=== PATIENT | female | born 1950 | race African-American/Black ===

== ENCOUNTER 2019-08-08 19:05 | Emergency (ER) | payer OTHER ==
[~2019-08-08] VITALS: Ht 154.9 cm; Wt 117.9 kg
[~2019-08-08 19:05] MED LIST: FLEXERIL PO; LORTAB 5 MG/5001 TA1 PO; METFORMIN 500500 MG PO
[2019-08-08 19:07] VITALS: BP 159/80
[2019-08-08] MEDS ORDERED: NORVASC2.5 MG PO (19:10)
[2019-08-08] MEDS ORDERED: GLUMETZA500 PO (19:11)
[2019-08-08] MEDS ORDERED: HYDROCHLOROTHIA25 M1 (19:11)
[2019-08-08] MEDS ORDERED: MOBIC7.5 MG PO (19:55)
== END 2019-08-08 20:15 | disposition home or self-care (01) ==
LOC: ER 19:05
DX: M25.472 Effusion, left ankle (principal); I10 Essential (primary) hypertension; E11.9 Type 2 diabetes mellitus without complications; Z90.711 Acquired absence of uterus with remaining cervical stump

== ENCOUNTER 2020-06-30 09:31 | Emergency (ER) | payer BC, OTHER ==
[~2020-06-30] VITALS: Ht 154.9 cm; Wt 113.4 kg
[~2020-06-30 09:31] MED LIST changes: +GLUMETZA500 PO; +HYDROCHLOROTHIA25 M1; +MOBIC7.5 MG PO; +NORVASC2.5 MG PO
[2020-06-30 09:32] VITALS: BP 140/59
[2020-06-30] MEDS ORDERED: MELOXICAM7.5 MG PO (10:07)
== END 2020-06-30 10:40 | disposition home or self-care (01) ==
LOC: ER 09:31
DX: G56.01 Carpal tunnel syndrome, right upper limb (principal); E11.9 Type 2 diabetes mellitus without complications; Z98.51 Tubal ligation status; Z79.899 Other long term (current) drug therapy

== ENCOUNTER → 2020-10-16 | Outpatient (CLI) | payer BC, OTHER ==
[~2020-10-16] MED LIST changes: +MELOXICAM7.5 MG PO
== END ==
LOC: LAB 08:45
PROVIDERS: ATTEND Family Medicine
DX: Z20.828 Contact with and (suspected) exposure to other viral communicable diseases (principal)

== ENCOUNTER 2021-07-26 09:07 | Emergency (ER) | payer BC, OTHER ==
[~2021-07-26] VITALS: Ht 154.9 cm; Wt 117.9 kg
[2021-07-26 09:07] VITALS: BP 152/62
== END 2021-07-26 11:29 | disposition home or self-care (01) ==
LOC: ER 09:07
DX: M65.872 Other synovitis and tenosynovitis, left ankle and foot (principal); M25.572 Pain in left ankle and joints of left foot; E11.9 Type 2 diabetes mellitus without complications; Z90.711 Acquired absence of uterus with remaining cervical stump; Z79.1 Long term (current) use of non-steroidal anti-inflammatories (NSAID); Z79.84 Long term (current) use of oral hypoglycemic drugs; Z79.899 Other long term (current) drug therapy; Z88.8 Allergy status to other drugs, medicaments and biological substances

== ENCOUNTER 2021-09-18 15:29 | Emergency (ER) | payer BC, OTHER ==
[~2021-09-18] VITALS: Ht 154.9 cm; Wt 113.4 kg
[2021-09-18 16:08] VITALS: BP 162/78
== END 2021-09-18 17:50 | disposition home or self-care (01) ==
LOC: ER 15:29
DX: M79.602 Pain in left arm (principal); M19.90 Unspecified osteoarthritis, unspecified site; E11.9 Type 2 diabetes mellitus without complications; Z90.711 Acquired absence of uterus with remaining cervical stump; Z79.1 Long term (current) use of non-steroidal anti-inflammatories (NSAID); Z79.84 Long term (current) use of oral hypoglycemic drugs; Z79.899 Other long term (current) drug therapy; Z91.09 Other allergy status, other than to drugs and biological substances